=== PATIENT | female | born 1965 | race Caucasian/White ===

== ENCOUNTER → 2021-06-08 | Outpatient (CLI) | payer OTHER ==
[2021-06-08 10:34] LABS: CHOLESTEROL 177 mg/dL (<200); HDL CHOLESTEROL 49 mg/dL (>40); LDL CHOLESTEROL 107 mg/dL (<100); TC:HDL 3.6 Ratio (Not establshd); TRIGLYCERIDE 106 mg/dL (<150); VLDL 21 mg/dL (<40)
[2021-06-08 10:36] LABS: SERUM ASSESSMENT Clear
[2021-06-08 23:06] LABS: GLYCOHEMOGLOBIN (HGB A1C) 5.6 % (4.8-5.6)
== END ==
LOC: M.LAB 06-02 14:16 → M.ULTRA 08:00
PROVIDERS: ATTEND Nurse Practitioner Women's Health
DX: Z01.419 Encounter for gynecological examination (general) (routine) without abnormal findings (principal); N85.2 Hypertrophy of uterus; Z12.31 Encounter for screening mammogram for malignant neoplasm of breast